=== PATIENT | male | born 1950 | race Caucasian/White ===

== ENCOUNTER 2017-10-15 11:55 | Outpatient (CLI) | payer MEDICARE, BC ==
[2017-10-15 15:07] LABS: Hemoglobin 15.3 g/dL (14.0-18.0); Mean Corpuscular Hemoglobin 30.7 pg (27.0-31.0); Platelet Count 301 thou/uL (130-400); RBC Distribution Width 12.7 % (11.5-14.5); Red Blood Cell (RBC) Count 4.99 mill/uL (4.70-6.10); White Blood Cell (WBC) Count 12.3 thou/uL (4.8-10.8)
[2017-10-15 15:11] LABS: Bilirubin Negative (Negative); Blood, Urine Negative (Negative); Clarity CLEAR (Clear); Glucose, Urine (Dipstick) Negative (Negative); Leukocyte Negative (Negative); Nitrite Negative (Negative); Protein, Urine (Dipstick) Negative (Neg-Trace); Specific Gravity, Urine 1.015 (1.002-1.036); Urobilinogen 0.2 mg/dL (0.2-1.0); pH, Urine 5.5 (5.0-9.0)
[2017-10-15 15:12] LABS: INR-International Normal Ratio 1.1; Prothrombin Time 14.1 SEC (12.0-14.7)
[2017-10-15 15:18] LABS: Bacteria/HPF None Seen HPF (None Seen); Hyaline Casts/LPF 0-3 HYALINE CAST LPF (0-3 Hyaline); RBC/HPF 0-3 HPF (0-3); Squamous Epithelial None Seen HPF (0-3); WBC/HPF None Seen HPF (0-3)
[2017-10-15 15:26] LABS: Anion Gap 14 mmol/L (10-20); BUN (Urea Nitrogen) 17 mg/dL (8.4-25.7); Calc. Creatinine Clearance 0 mL/min (70-130); Calcium 9.6 mg/dL (7.8-10.44); Carbon Dioxide 28 mmol/L (23-31); Chloride 101 mmol/L (98-107); Estimated GFR-MDRD 75; Glucose 87 mg/dL (80-115); Potassium 4.3 mmol/L (3.5-5.1); Sodium 139 mmol/L (136-145)
--- NOTE | 2017-10-24 19:28 | EKG ---
Test Reason : Blood Pressure : / mmHG Vent. Rate : 084 BPM Atrial Rate : 084 BPM P-R Int : 170 ms QRS Dur : 084 ms QT Int : 372 ms P-R-T Axes : 035 064 025 degrees QTc Int : 439 ms Normal sinus rhythm Normal ECG When compared with ECG of 09-SEP-2007 08:12, No significant change was found Confirmed by GHANSHYAM SHULTZ (2) on 10/24/2017 7:28:32 PM Referred By: MELINA Confirmed By:GHANSHYAM SHULTZ
== END 2017-10-15 11:56 | disposition home or self-care (01) ==
LOC: LABBT 11:55
PROVIDERS: ATTEND Orthopaedic Surgery
DX: Z01.818 Encounter for other preprocedural examination (principal); M17.11 Unilateral primary osteoarthritis, right knee
CPT/HCPCS: 80048; 81001; 85027; 85610; 86850; 86900; 86901; 87081; 93005; 93010

== ENCOUNTER 2017-10-21 07:47 | Inpatient (IN) | payer MEDICARE, BC ==
[2017-10-15 12:25] VITALS: BMI 28.7
--- NOTE | 2017-10-17 12:57 | HP ---
DATE OF ADMISSION: 10/21/2017 HISTORY OF PRESENT ILLNESS: The patient is a 67-year-old white male who has a greater than 1 year hi story of progressive right knee pain without injury. He has progressive weightbearing pain despite r est despite rest, restriction of activities, anti-inflammatory medications, and previous cortisone in [facility]. The pain is now interfering with day-to-day activities including walking, getting dressed a nd sleeping. PAST MEDICAL HISTORY: The patient has history of prostate cancer, previous prostatectomy in [facility]. He has a history of hypertension and peripheral neuropathy. PAST SURGICAL HISTORY: He has had previous arthroscopic meniscectomy of the right knee approximately 10 years ago. CURRENT MEDICATIONS: Toviaz, nifedipine, simvastatin, levothyroxine. ALLERGIES: He has no known allergies. FAMILY HISTORY/SOCIAL HISTORY/REVIEW OF SYSTEMS: Otherwise unremarkable. PHYSICAL EXAMINATION: GENERAL: Reveals a healthy male. HEENT: Unremarkable. NECK: Supple. CHEST: Clear. HEART: Regular rate and rhythm. ABDOMEN: Soft, nontender. RECTAL/GENITAL: Deferred. EXTREMITIES: Pertinent findings related to the right knee. There is puffiness, but no definite effu alla. There is mild varus deformity. There is tenderness and crepitus over the medial joint line. Range of motion is 3-120 degrees. There is no instability. Pulses are 2+. Neurovascular exam is in tact. There is a right antalgic gait. There is no pain with range of motion of the right hip. LABORATORY AND X-RAY FINDINGS: X-rays of the right knee reveal bone on bone collapse medially with p rogression from x-rays taken 8 months previously. IMPRESSION: 1. Progressive post-traumatic degenerative arthritis, right knee. 2. History of hypertension. 3. History of prostate cancer. PLAN: Right total knee replacement. The nature of the surgery, length of recovery, and potential co mplications such as infection, loss of motion, incomplete relief, delayed wound healing, neurovascula r injury, thromboembolic phenomenon, possible transfusion, and need for revision have been discussed in detail.
[2017-10-21] MEDS ORDERED: Vancomycin HCl 1.5 GM in Sodium Chloride 0.9% 250 ML 300 ML IVPB SCH ×2 (09:30→21:30)
[2017-10-21] MEDS ORDERED: CEFAZOLIN/Water 2 GM/20 ML SYRINGE SLOW IVP SCH (09:30)
[2017-10-21] MEDS ORDERED: Tranexamic Acid 1,000 MG/100 ML BAG ONE ×2 (09:34→14:03)
[2017-10-21] MEDS ORDERED: CEFAZOLIN/Water 2 GM/20 ML SYRINGE ONE (09:34)
[2017-10-21] MEDS ORDERED: Ropivacaine 0.2% HCl/PF 20 ML ONE (09:52)
[2017-10-21] MEDS ORDERED: Fentanyl 100 MCG/2 ML VIAL ONE ×3 (09:52→14:44)
[2017-10-21] MEDS ORDERED: Midazolam HCl 2 mg/2 ml Vial ONE (09:52)
[2017-10-21] MEDS ORDERED: Scopolamine 1.5 mg/72 hour Patch ONE (10:35)
[2017-10-21] MEDS ORDERED: Lidocaine 1% (PF) 30 ML VIAL ONE (10:55)
[2017-10-21] MEDS ORDERED: HYDROcodone/Acetaminophen 10/325 mg Tablet PO PRN ×4 (11:19→16:12)
[2017-10-21] MEDS ORDERED: Promethazine HCl 25 MG/ML VIAL IM PRN ×2 (11:19→14:16)
[2017-10-21] MEDS ORDERED: Ropivacaine HCl/PF 250 ML in Premix Bag 1 BAG NERVE BLCK SCH (11:19)
[2017-10-21] MEDS ORDERED: traMADol HCl 50 MG TAB PO PRN ×3 (11:19→16:12)
[2017-10-21] MEDS ORDERED: Zolpidem Tartrate 5 MG TAB PO PRN ×2 (11:19→16:12)
[2017-10-21] MEDS ORDERED: Fentanyl 100 MCG/2 ML VIAL IV PRN (11:20)
[2017-10-21] MEDS ORDERED: Lidocaine 1% w/Epinephrine 1:200K 30 ML VIAL ONE (12:02)
[2017-10-21] MEDS ORDERED: Bupivacaine/Epinephrine 0.25% 30 ML VIAL ONE (12:02)
--- NOTE | 2017-10-21 14:10 | OP ---
DATE OF PROCEDURE: 10/21/2017 PREOPERATIVE DIAGNOSES: Right knee end-stage tricompartmental osteoarthritis and degenerative genu v arum. POSTOPERATIVE DIAGNOSES: Right knee end-stage tricompartmental osteoarthritis and degenerative genu varum. OPERATIVE PROCEDURE: Cemented cruciate sparing computer assisted navigated right total knee arthropl ruben. SURGEON: Yg Clarke M.D. ANALYTICS DEVELOPER: Tung Peña PA-C. ANESTHESIA: General via laryngeal mask airway augmented with indwelling adductor canal catheter and a single shot sciatic block. TOURNIQUET TIME: 70 minutes at 300 mmHg. ESTIMATED BLOOD LOSS: Less than 100 mL. FINDINGS: End-stage severe degenerative tricompartmental disease, bone on bone arthrosis, periarticu lar osteophyte formation, large serous effusion, hypertrophic synovium, and changes consistent with d egenerative genu varum. COMPONENTS USED: [place] [facility] Triathlon size 5 cemented cruciate-sparing femoral component w ith a cemented Triathlon size 4 universal tibial baseplate, 9 mm polyethylene fixed bearing insert, a nd A32 patellar button. DRAINS: None. SPECIMENS: None. COMPLICATIONS: None. COUNTS: Correct. INDICATIONS FOR SURGERY: [place] is a 67-year-old white male who has had progressive right knee pain amplified with standing and walking for the last 5-7 years. He has failed conservative management a nd elected to proceed with total knee arthroplasty as definitive treatment for his pain. PROCEDURE IN DETAIL: After informed consent was obtained in the preoperative holding area. The lupe ent was taken to the operative suite where general anesthesia was induced. Once adequate level of ge neral anesthesia was obtained, the patient was positioned and a well-padded tourniquet was placed izabel und the right proximal thigh. The right lower extremity was then prepped and draped in the usual dipak rile fashion. Prior to exsanguination, a time out was called and all members of the surgical team ag hiro upon site, surgeon, and patient. The extremity was then exsanguinated and the tourniquet was ra ised. A midline longitudinal incision was then made directly over the patella extending two fingerbr eadths above the superior pole of the patella and two fingerbreadths inferior to the inferior patella r pole of the patella. Deeper subcutaneous layers were dissected sharply and local bleeding was cont rolled with Bovie electrocautery. A quad tendon longitudinal split was then made sharply and a media n parapatellar arthrotomy was carried out both sharp and with Bovie electrocautery, carried down to o ne fingerbreadth medial to the tibial tubercle. The knee was then placed into flexion and the patell a was everted nicely, and a copious fat pad ectomy was performed allowing for greater exposure of the tibia. The computer-assisted distal femoral fiducial was then placed and pinned firmly, and the dis dami femoral cutting guide was pinned firmly into place. The oscillating saw was then used to remove the appropriate amount of bone. The 4-in-1 cutting block was then placed on the distal femur and the oscillating saw was used to remove the appropriate amount of bone off of the anterior, posterior, an d chamfer cuts. After completion of the chamfer cuts, the box-cutting guide was placed, malleted fir mly into place and pinned securely, and an osteotome was used to make the distal cut and the oscillat ing saw was then used to make the medial and lateral box cuts. This came out quite nicely and was re moved with Bovie electrocautery, and the oscillating saw was then used to broaden the lateral medial armendariz of the box cut. After completion of bone cuts, the anterior cruciate ligament was resected sha rply and the posterior cruciate ligament retractor was placed and the tibia was subluxed for better e xposure. Partial meniscectomies were carried out, and the tibial computer-assisted fiducial was pinn ed, and the cutting guide was placed. Oscillating saw was then used to remove the bone with Hohmann retractors used to take care and protect the collateral ligaments. After the tibial resection was pe rformed, a laminar produce assistant was placed in between the freshened bone cuts. The knee placed at 90 deg eleonora and further bilateral meniscectomies were carried out, and the curved osteotome and curettage wa s used to remove any excess bone spurs in the posterior compartment. The trial femoral component, ti bial baseplate were placed with the appropriate polyethylene trial insert with an appropriate polyeth ylene spacer and patellar button. The knee was taken through full range of motion with flexion and e xtension from 0-90 degrees and patellar broach squarely in the trochlea without any squinting or subl uxation noted. The knee was also stable to varus and valgus stressing at 0, 15, 45, and 90 degrees o f flexion. The drawer was negative. All trial components were then removed and the keel punch was us ed to provide the appropriate defect in the tibia with a mallet. The freshened bone cuts were copiou sly irrigated with pulsatile lavage of about 1-1/2 liters to remove all excess debris. The freshened bone cuts were then dried and with suction and lap sponge. The knee was placed in flexion and retra ctors were placed to provide access to all bone cuts. Tobramycin impregnated methyl methacrylate staci ent was then placed on the freshened bone cuts and implants which were malleted firmly into place. C urettage and [place] elevators were used to remove any excess bone cement. The knee was placed into fu ll extension and the patellar button was placed under compression, and the cement was allowed to cure . Once completed, the components were again taken through full range of motion and copious irrigatio n of the knee was carried out with another liter of normal saline. All components were inspected ful ly with full range of motion and varus and valgus stressing. There was no laxity noted and full exten alla was observed clinically. Primary closure was accomplished with #2 interrupted Vicryl stitch of the arthrotomy defect. This was oversewn with a #2 running Quill barbed stitch. The subcutaneous la gianni was then closed with a running 0 barbed Monocryl stitch and skin closure accomplished with a runn ing subcuticular 3-0 Monocryl barbed Quill stitch and augmented with cement on the skin. Tourniquet was lowered. Good spontaneous return of distal pulses was noted clinically and a sterile dressing wa s applied to the incision. The procedure was terminated without any complications. The patient was awakened in the operative suite and taken to the recovery room in stable condition.
[2017-10-21] MEDS ORDERED: Tranexamic Acid 1,000 MG in Sodium Chloride 0.9% 100 ML IVPB SCH ×2 (14:15→16:12)
[2017-10-21] MEDS ORDERED: Ondansetron HCl/PF 4 MG/2 ML Vial IVP PRN (14:16)
[2017-10-21] MEDS ORDERED: Promethazine HCl 25 MG/ML VIAL SLOW IVP PRN ×2 (14:16→16:12)
--- NOTE | 2017-10-21 16:05 | RAD ---
TWO VIEWS RIGHT KNEE: Date: 10-21-17 History: Post total knee replacement. FINDINGS: There are post-surgical changes related to right total knee prosthesis. No hardware complication is s een. There is no fracture or dislocation. Superior and patellar enthesophytes are seen. There is subc utaneous edema and emphysema related to recent post-surgical change. IMPRESSION: Post-surgical changes related to recent placement of right total knee prosthesis. POS: [facility]
[2017-10-21] MEDS ORDERED: diphenhydrAMINE 25 MG CAP PO PRN (16:12)
[2017-10-21] MEDS ORDERED: Sodium Chloride 0.9% 1,000 ML IV SCH (16:12)
[2017-10-21] MEDS ORDERED: Fentanyl 100 MCG/2 ML VIAL SLOW IVP PRN ×2 (16:12)
[2017-10-21] MEDS: Ketorolac Tromethamine 30 MG/ML VIAL IVP SCH ×3 (16:18→23:42)
[2017-10-21] MEDS ORDERED: Ropivacaine 0.5% HCl/PF (150 MG/30 ML VIAL) ONE (16:40)
[2017-10-21] MEDS ORDERED: Ketorolac Tromethamine 30 MG/ML VIAL ONE (17:00)
[2017-10-21] MEDS ORDERED: Ketorolac Tromethamine 30 MG/ML VIAL IVP SCH (17:00)
[2017-10-21] MEDS ORDERED: Ondansetron HCl/PF 4 MG/2 ML Vial ONE (17:00)
[2017-10-21] MEDS ORDERED: Lidocaine 1% PF 5 ML VIAL ONE (17:00)
[2017-10-21] MEDS ORDERED: Propofol 200 MG/20 ML VIAL ONE (17:00)
[2017-10-21] MEDS: CEFAZOLIN/Water 2 GM/20 ML SYRINGE SLOW IVP SCH (18:21)
[2017-10-21] MEDS: Mesalamine DR 400 mg Capsule PO SCH ×2 (18:51→21:08)
[2017-10-21] MEDS ORDERED: hydrALAZINE 20 MG/ML VIAL SLOW IVP PRN (19:48)
[2017-10-21] MEDS: Sodium Chloride 0.9% 1,000 ML IV SCH (20:45)
[2017-10-21] MEDS: Ferrous Gluconate 324 MG TAB PO SCH (21:07)
[2017-10-21] MEDS: Senokot S 8.6-50 MG TAB PO SCH (21:08)
[2017-10-21] MEDS: Simvastatin 20 MG TAB PO SCH (21:08)
[2017-10-21] MEDS: Ondansetron HCl/PF 4 MG/2 ML Vial IVP PRN (21:09)
--- NOTE | 2017-10-21 23:43 | CON ---
DATE OF CONSULTATION: 10/21/2017 REASON FOR ADMISSION: Right total knee replacement. CONSULTING PHYSICIAN: Yg Clarke M.D. REASON FOR CONSULT: Medical management. HISTORY OF PRESENT ILLNESS: This is a 67-year-old white male who came into the hospital with progres sive right knee pain. He got a total knee replacement on the right side. I have been consulted for postoperative management of the medical issues. The patient is right now doing well. He has voided. He has already worked a little bit with physical therapy. He is doing fine. Pain management is ad equate. He denies any fever, chills, or chest pains. PAST MEDICAL HISTORY: Significant for prostate cancer, previous prostatectomy in remission, history of hypertension, and peripheral neuropathy. PAST SURGICAL HISTORY: Previous arthroscopic meniscectomy and right knee replacement 10 years ago. CURRENT MEDICATIONS: Include Toviaz, nifedipine, simvastatin, levothyroxine. Please see MAR for the complete list. FAMILY HISTORY: Negative for diabetes and hypertension. ALLERGIES: No known drug allergies. SOCIAL HISTORY: Denies tobacco or drug use. REVIEW OF SYSTEMS: Significant for no fever, no chills, no headache, no appetite, no hearing latenci es. No cough, no chest pain, diarrhea, dysuria, or polyuria. No memory or mood changes. No neck pa in. PHYSICAL EXAMINATION: VITAL SIGNS: Blood pressure is 146/76, pulse is 100, afebrile, breathing comfortably on room air. GENERAL: The patient is lying in bed in no apparent distress. HEENT: Atraumatic, normocephalic. Pupils equally round, react to light. Extraocular movements are intact. Mucous membranes are moist. NECK: Supple. No JVD. CHEST: Breath sounds. There are no rales or rhonchi. HEART: S1, S2, no murmurs or gallops. ABDOMEN: Soft. EXTREMITIES: Right knee in dressing. We will defer to Ortho for detailed examination. NEUROLOGIC: Alert, awake, oriented. No cranial deficits. No sensorimotor deficits. LABORATORY DATA: Hemoglobin was 15 on 10/15/2017, WBC count is 12 on 10/15/2017. Creatinine is 0.99 . ASSESSMENT AND PLAN: 1. Hypertension, stable. We will continue home medications. 2. Hypothyroidism. We will continue home medications. 3. Pain management will be adequate as the patient has right knee end-stage tricompartmental osteoar thritis, status post right total knee arthroplasty. Sequential compression devices for deep venous t hrombosis prophylaxis. Thanks Dr. Clarke for letting me participate in this patient's care. I will follow this patient and d o the need for and make recommendations as the clinical course evolves.
[2017-10-22] MEDS: CEFAZOLIN/Water 2 GM/20 ML SYRINGE SLOW IVP SCH (01:24)
[2017-10-22] MEDS: Levothyroxine Sodium 75 MCG TAB PO SCH (05:24)
[2017-10-22] MEDS: Ketorolac Tromethamine 30 MG/ML VIAL IVP SCH ×4 (05:25→23:37)
[2017-10-22] MEDS: Ondansetron HCl/PF 4 MG/2 ML Vial IVP PRN ×3 (05:53→17:47)
[2017-10-22 06:57] LABS: Hemoglobin 13.1 g/dL (14.0-18.0); Mean Corpuscular HGB CONC 32.3 g/dL (32.0-36.0); Mean Corpuscular Hemoglobin 30.1 pg (27.0-31.0); Mean Platelet Volume 7.6 fL (7.4-10.4); Platelet Count 250 thou/uL (130-400); RBC Distribution Width 12.6 % (11.5-14.5); Red Blood Cell (RBC) Count 4.34 mill/uL (4.70-6.10); White Blood Cell (WBC) Count 12.3 thou/uL (4.8-10.8)
[2017-10-22] MEDS: NIFEdipine XL 60 MG TAB PO SCH (09:17)
[2017-10-22] MEDS: Ferrous Gluconate 324 MG TAB PO SCH ×2 (09:18→20:54)
[2017-10-22] MEDS: Magnesium Oxide 250 MG TAB PO SCH (09:18)
[2017-10-22] MEDS: Senokot S 8.6-50 MG TAB PO SCH ×2 (09:19→20:54)
[2017-10-22] MEDS: Multivitamin W/ Minerals 1 TAB PO SCH (09:19)
[2017-10-22] MEDS: Mesalamine DR 400 mg Capsule PO SCH ×4 (09:22→20:56)
[2017-10-22] MEDS: Potassium Chloride 8 MEQ TAB PO SCH (09:23)
[2017-10-22] MEDS: Sodium Chloride 0.9% 1,000 ML IV SCH (09:24)
[2017-10-22] MEDS: TROSPIUM 20 MG TABLET PO SCH ×2 (12:02→20:54)
[2017-10-22] MEDS: Acetaminophen 325 MG TAB PO PRN (18:00)
[2017-10-22] MEDS: Simvastatin 20 MG TAB PO SCH (20:54)
[2017-10-23] MEDS: Ketorolac Tromethamine 30 MG/ML VIAL IVP SCH (06:36)
[2017-10-23] MEDS: Levothyroxine Sodium 75 MCG TAB PO SCH (06:36)
[2017-10-23] MEDS: Acetaminophen 325 MG TAB PO PRN (06:43)
[2017-10-23] MEDS: Magnesium Oxide 250 MG TAB PO SCH (09:07)
[2017-10-23] MEDS: Ferrous Gluconate 324 MG TAB PO SCH (09:07)
[2017-10-23] MEDS: Mesalamine DR 400 mg Capsule PO SCH ×2 (09:08→14:18)
[2017-10-23] MEDS: NIFEdipine XL 60 MG TAB PO SCH (09:08)
[2017-10-23] MEDS: Potassium Chloride 8 MEQ TAB PO SCH (09:09)
[2017-10-23] MEDS: Senokot S 8.6-50 MG TAB PO SCH (09:09)
[2017-10-23] MEDS: Multivitamin W/ Minerals 1 TAB PO SCH (09:09)
[2017-10-23] MEDS: TROSPIUM 20 MG TABLET PO SCH (11:39)
[2017-10-23 12:55] VITALS: BP 148/85; TEMP 98.6
[2017-10-23] MEDS ORDERED: TROSPIUM 20 MG TABLET PO SCH (21:00)
== END 2017-10-23 16:45 | disposition home or self-care (01) | DRG 470 ==
LOC: SDC 07:47 → EDSTATUS 13:15 → SJJU 16:11
PROVIDERS: ADMIT Orthopaedic Surgery; ATTEND Orthopaedic Surgery
PROC: 0SRC0J9 Replacement of Right Knee Joint with Synthetic Substitute, Cemented, Open Approach (ICD-10-PCS; principal; 2017-10-21)
PROC: 8E0YXBZ Computer Assisted Procedure of Lower Extremity (ICD-10-PCS; 2017-10-21)
PROC: 3E0T3BZ Introduction of Anesthetic Agent into Peripheral Nerves and Plexi, Percutaneous Approach (ICD-10-PCS; 2017-10-21)
PROC: 3E0T3BZ Introduction of Anesthetic Agent into Peripheral Nerves and Plexi, Percutaneous Approach (ICD-10-PCS; 2017-10-21)
DX: M17.11 Unilateral primary osteoarthritis, right knee (principal); G62.9 Polyneuropathy, unspecified; M21.161 Varus deformity, not elsewhere classified, right knee; Z85.46 Personal history of malignant neoplasm of prostate; Z90.79 Acquired absence of other genital organ(s); I10 Essential (primary) hypertension; E03.9 Hypothyroidism, unspecified; R11.2 Nausea with vomiting, unspecified; R32 Unspecified urinary incontinence; E78.5 Hyperlipidemia, unspecified
CPT/HCPCS: 36415; 85027; C1713; C1776; G8978-GP-CM; G8979-GP-CI; J1885; J2001; J2250; J2405; J2704; J2795; J3010; J3370; J7050

== ENCOUNTER 2017-10-30 09:15 | Emergency (ER) | payer MEDICARE, BC ==
[2017-10-30 09:56] LABS: #Basophils 0.2 thou/uL (0.0-0.2); #Eosinphils 0.3 thou/uL (0.0-0.7); #Neutrophils 11.6 thou/uL (1.40-6.50); %Basophils 1.1 % (0.0-1.0); %Lymphocytes 7.2 % (21.0-51.0); %Monocytes 6.8 % (0.0-10.0); %Neutrophils 82.8 % (42.0-75.0); Hemoglobin 12.6 g/dL (14.0-18.0); Mean Corpuscular HGB CONC 33.6 g/dL (32.0-36.0); Mean Corpuscular Hemoglobin 29.7 pg (27.0-31.0); Mean Corpuscular Volume 88.3 fl (80.0-94.0); Mean Platelet Volume 5.6 fL (7.4-10.4); Platelet Count 455 thou/uL (130-400); RBC Distribution Width 11.6 % (11.5-14.5); Red Blood Cell (RBC) Count 4.23 mill/uL (4.70-6.10)
[2017-10-30 10:05] LABS: ALT (SGPT) 48 U/L (8-55); AST (SGOT) 40 U/L (5-34); Albumin 3.6 g/dL (3.4-4.8); Alkaline Phosphatase 69 U/L (40-150); Anion Gap 17 mmol/L (10-20); BUN (Urea Nitrogen) 17 mg/dL (8.4-25.7); Bilirubin, Total 0.7 mg/dL (0.2-1.2); Calc. Creatinine Clearance 0 mL/min (70-130); Carbon Dioxide 26 mmol/L (23-31); Chloride 98 mmol/L (98-107); Estimated GFR-MDRD 73; Globulin 3.7 g/dL (2.4-3.5); Glucose 114 mg/dL (80-115); Potassium 3.5 mmol/L (3.5-5.1); Protein, Total 7.3 g/dL (5.8-8.1); Sodium 137 mmol/L (136-145)
[2017-10-30 10:09] LABS: CKMB 2.5 ng/mL (0-6.6)
--- NOTE | 2017-10-30 11:52 | CT ---
CT ANGIOGRAM CHEST WITH CONTRAST FOR PULMONARY EMBOLISM: HISTORY: Dyspnea. Recent knee surgery. COMPARISON: None. TECHNIQUE: A CT of the chest was performed after the intravenous administration of contrast, per PE protocol, an d 3D rendering was provided. FINDINGS: Pulmonary trunk size is normal. No pulmonary arterial filling defect. No pericardial effusion. Heart size is normal. No adenopathy. No pneumothorax. No significant effusion. No focal air space consolidation. The upper abdomen is unremarkable. IMPRESSION: 1. No segmental pulmonary arterial filling defect. 2. No acute intrathoracic abnormality. 3. No evidence for pneumonia. POS: [facility]
== END 2017-10-30 11:41 | disposition home or self-care (01) ==
LOC: SCSER 09:15
DX: D72.829 Elevated white blood cell count, unspecified (principal); E78.5 Hyperlipidemia, unspecified; E03.9 Hypothyroidism, unspecified; I10 Essential (primary) hypertension; Z87.442 Personal history of urinary calculi; Z79.82 Long term (current) use of aspirin; Z79.899 Other long term (current) drug therapy
CPT/HCPCS: 71275; 80053; 82553; 84484; 85025; 93005

== ENCOUNTER 2017-11-06 19:57 | Emergency (ER) | payer MEDICARE, BC ==
--- NOTE | 2017-11-06 20:14 | CT ---
CT BRAIN 11/06/17 PROVIDED CLINICAL HISTORY: Facial droop and altered speech. FINDINGS: The ventricular system appears normal in size and morphology. There is no evidence for intracranial h emorrhage or mass effect. The extracranial soft tissues and osseous structures demonstrate an unremar kable CT appearance. IMPRESSION: No evidence for intracranial hemorrhage or mass effect. Findings communicated to Dr. Yepez at 8:10 p.m., 11/06/17. Code CR POS: [facility]
[2017-11-06 21:21] LABS: #Basophils 0.1 thou/uL (0.0-0.2); #Eosinphils 0.3 thou/uL (0.0-0.7); %Basophils 0.4 % (0.0-1.0); Mean Platelet Volume 6.3 fL (7.4-10.4); RBC Distribution Width 12.3 % (11.5-14.5)
[2017-11-06 21:28] LABS: INR-International Normal Ratio 1.2; PTT 40.2 SEC (22.9-36.1); Prothrombin Time 15.8 SEC (12.0-14.7)
--- NOTE | 2017-11-06 21:34 | RAD ---
PORTABLE CHEST 11/06/17 PROVIDED CLINICAL HISTORY: Facial droop. FINDINGS: Comparison is made with the study dated 09/21/07. The cardiac and mediastinal silhouette is within normal limits. The lungs appear clear. No pleural fl uid or pneumothorax apparent. IMPRESSION: No evidence for an acute cardiopulmonary process. POS: [facility]
[2017-11-06 21:37] LABS: #Lymphocytes 1.4 thou/uL (1.20-3.40); #Monocytes 1.2 thou/uL (0.11-0.59); #Neutrophils 12.8 thou/uL (1.40-6.50); %Eosinophils 2.2 % (0.0-10.0); %Lymphocytes 8.9 % (21.0-51.0); %Monocytes 7.6 % (0.0-10.0); %Neutrophils 80.9 % (42.0-75.0); Hemoglobin 12.7 g/dL (14.0-18.0); Mean Corpuscular HGB CONC 33.3 g/dL (32.0-36.0); Mean Corpuscular Hemoglobin 30.5 pg (27.0-31.0); Mean Corpuscular Volume 91.6 fl (80.0-94.0); Platelet Count 719 thou/uL (130-400); Red Blood Cell (RBC) Count 4.16 mill/uL (4.70-6.10); White Blood Cell (WBC) Count 15.8 thou/uL (4.8-10.8)
[2017-11-06 21:38] LABS: ALT (SGPT) 71 U/L (8-55); AST (SGOT) 39 U/L (5-34); Albumin 3.7 g/dL (3.4-4.8); Alkaline Phosphatase 81 U/L (40-150); Anion Gap 17 mmol/L (10-20); BUN (Urea Nitrogen) 21 mg/dL (8.4-25.7); Bilirubin, Total 0.4 mg/dL (0.2-1.2); CK (CPK) 67 U/L (30-200); Calc. Creatinine Clearance 0 mL/min (70-130); Calcium 9.5 mg/dL (7.8-10.44); Carbon Dioxide 25 mmol/L (23-31); Chloride 98 mmol/L (98-107); Estimated GFR-MDRD 67; Globulin 3.8 g/dL (2.4-3.5); Glucose 134 mg/dL (80-115); Potassium 3.7 mmol/L (3.5-5.1); Protein, Total 7.5 g/dL (5.8-8.1); Sodium 136 mmol/L (136-145)
[2017-11-06 21:42] LABS: CKMB 1.2 ng/mL (0-6.6); Troponin I Less than 0.010 ng/mL (< 0.028)
--- NOTE | 2017-11-06 23:26 | MRI ---
MRA BOIS FORTE OF [place] WITH 3D VOLUME RENDERING 11/06/17 CLINICAL HISTORY: Emergency exam with history of tongue numbness and slurred speech. FINDINGS: The imaged distal vertebral arteries and basilar artery are patent. Posterior cerebral arteries are u nremarkable.. No significant abnormality in the posterior communicating arteries is visualized. Each MCA is grossly patent. Anterior cerebral arteries are patent and there is unremarkable appearance of the anterior communicating artery. The imaged distal bilateral internal carotid arteries reveal no si gnificant stenosis. IMPRESSION: No acute pathology of the [place] evident. POS: [facility]
--- NOTE | 2017-11-07 08:22 | MRI ---
MRI BRAIN WITH AND WITHOUT CONTRAST: COMPARISON: Comparison is made to a head CT earlier same day which revealed no acute intracranial abnormality. CLINICAL HISTORY: Tongue numbness, slurred speech. FINDINGS: The ventricular system is normal in size. There is no acute territorial infarction or intracranial m ass effect. No hemorrhagic susceptibility. There are no significant abnormalities of the brain pare nchyma. [place] intraarticular lenses are absent. Skull base flow voids are maintained. There is a small retention cyst of the right maxillary sinus inferiorly. IMPRESSION: No acute territorial infarction. POS: [facility]
== END 2017-11-07 00:45 | disposition home or self-care (01) ==
LOC: ERS 19:57
DX: H02.401 Unspecified ptosis of right eyelid (principal); K14.9 Disease of tongue, unspecified; E03.9 Hypothyroidism, unspecified; E78.5 Hyperlipidemia, unspecified; I10 Essential (primary) hypertension; Z85.46 Personal history of malignant neoplasm of prostate
CPT/HCPCS: 36415; 36416; 70450; 70544; 70551; 71045; 80053; 82550; 82553; 84484; 85025; 85610; 85730; 86850; 86870; 86900; 86901; 86921; 93005; 94760

== ENCOUNTER 2020-02-02 09:15 | Outpatient (CLI) | payer MEDICARE, BC ==
[~2020-02-02 09:15] MED LIST: Iopamidol 370 76% 100 ML VIAL ONE
--- NOTE | 2020-02-02 11:20 | CT ---
CT ABDOMEN AND PELVIS WITH IV CONTRAST 02/02/2020 CLINICAL INFORMATION: Malignant neoplasm of prostate gland. History of removal prostate in 2006. Patient has history of el sthenia gravis. COMPARISON: Noncontrast CT abdomen and pelvis on 12/22/2014 Technique: Multiple contiguous axial CT images are obtained through the abdomen and pelvis with IV contrast. [place] onal reformatted images are provided. FINDINGS: Lower Chest: Lung bases are clear. No discrete pulmonary nodule or mass is seen. Vessels: Vascular calcifications are seen in the infrarenal abdominal aorta and in the iliac arteries . Abdomen: Portal vein:Patent Gallbladder: Within normal limits for CT imaging. Liver: Few scattered subcentimeter too small to characterize hypodense lesions are seen in each lobe of the liver which are too small to characterize. Spleen: within normal limits. Pancreas: within normal limits. Adrenals: within normal limits. Kidneys: Mild enlargement of superior and inferior pole renal cystic lesions. Exophytic lesion superi or pole right kidney measures 3 cm and demonstrates fluid attenuation suggestive of a cyst. The larger exophytic inferior pole right renal cystic lesion measures 6.8 cm with previous measurement of 5.3 cm. Fluid attenuation is present within this hypodense cystic lesion compatible with a cyst, and there are calcifications along the posterior wall of the lower portion of this cyst. A nonobstructing approximately 2 mm calculus is again seen in the inferior pole right kidney. No bean tional renal or ureteral calculi are seen bilaterally. A subcentimeter too small to characterize hypodense lesion is seen in the midportion right kidney. Bowel: Colonic diverticulosis is present. There does appear to be mild thickening of the sigmoid colo n. This is probably attributable to diverticular disease and incomplete distention of the colon. However, early diverticulitis cannot be entirely excluded. Loops of small bowel are normal in caliber . Appendix: The appendix is visualized and normal in caliber. Peritoneum: No ascites or free air; no fluid collection. Mesentery and Retroperitoneum: No enlarged mesenteric or retroperitoneal lymph nodes. Abdominal Wall: within normal limits. Pelvis: Reproductive Organs: Postsurgical changes related to prostatectomy. Pelvis within normal limits. Bladder: Decompressed but otherwise grossly within normal limits. Bones: Multilevel degenerative changes in the lumbar spine with grade 1 anterolisthesis of L4 on L5. There are prominent facet hypertrophic changes at this level with disc osteophyte complex resulting in severe central canal narrowing at the L4-5 level. There is also severe narrowing of the central ca nal at the L3-4 level again primarily related to a broad-based disc osteophyte complex and severe facet hypertrophic changes. Small lucency is seen within the superior aspect of the right femoral hea d likely attributable to osteonecrosis. This area measures approximately 1.9 cm. No suspicious lytic or sclerotic osseous lesions are identified IMPRESSION: 1. No acute findings are seen in the abdomen or pelvis. 2. 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 3. Nonobstructing right renal calculus. 4. Evidence of prostatectomy. 5. Osteonecrosis right femoral head. 6. Multilevel degenerative changes in the lumbar spine with severe central canal narrowing at the L3- 4 and L4-5 levels. Grade 1 anterolisthesis of L4 on L5 is present.
--- NOTE | 2020-02-02 14:07 | NM ---
Radionucleotide bone scan HISTORY: Prostate cancer. Increasing PSA. FINDINGS: Physiologic uptake of radiotracer. Heterogeneous areas of increased activity involving the shoulders, wrists, knees, feet, and spine have the appearance of degenerative changes. Photopenic defect at the right knee consistent with prosthesis. Uptake within the bladder obscures the pubic sym physis. IMPRESSION : Osteoarthritis. No scintigraphic evidence of skeletal metastases.
== END 2020-02-02 09:16 | disposition home or self-care (01) ==
LOC: CT 09:15
PROVIDERS: ATTEND Urology
DX: C61 Malignant neoplasm of prostate (principal); N28.1 Cyst of kidney, acquired; N20.0 Calculus of kidney; M47.816 Spondylosis without myelopathy or radiculopathy, lumbar region; M87.9 Osteonecrosis, unspecified; N28.89 Other specified disorders of kidney and ureter; M48.061 Spinal stenosis, lumbar region without neurogenic claudication; M43.16 Spondylolisthesis, lumbar region; Z90.79 Acquired absence of other genital organ(s)
CPT/HCPCS: 74178; 78306; 82565; A9503; Q9967

== ENCOUNTER 2024-08-11 10:40 | Outpatient (CLI) | payer MEDICARE, BC | END 2024-08-11 10:41 | disposition home or self-care (01) | LOC: BICMAMMO 10:40 | PROVIDERS: ATTEND Internal Medicine | DX: Z13.820 Encounter for screening for osteoporosis (principal); Z79.2 Long term (current) use of antibiotics | CPT/HCPCS: 77080 ==